=== PATIENT | female | born 1940 | race Two or more races ===

== ENCOUNTER 2016-05-25 09:46 | Emergency (ER) | payer MEDICARE, OTHER ==
[~2016-05-25] VITALS: Ht 162.6 cm; Wt 54.4 kg
[2016-05-25 10:00] VITALS: BP 61/42
[2016-05-25] MEDS ORDERED: Diltiazem 25mg/5ml IV ONE (10:15)
[2016-05-25] MEDS: Morphine Sulfate 2mg/ml Inj IVP ONE ×2 (10:20→11:28)
[2016-05-25 10:30] VITALS: BP 56/40
[2016-05-25 11:01] LABS: MEAN CORPUSCULAR HEMOGLOBIN 29.8 PG (27.0-31.0); MEAN CORPUSCULAR HGB CONC 32.3 G/DL (32.0-36.0); MEAN CORPUSCULAR VOLUME 92 FL (80-99); MEAN PLATELET VOLUME 8.3 FL (6.5-10.1); PLATELET COUNT 202 K/UL (150-450); RED BLOOD COUNT 4.44 M/UL (4.20-5.40); RED CELL DISTRIBUTION WIDTH 12.6 % (11.6-14.8); WHITE BLOOD COUNT 8.3 K/UL (4.8-10.8)
[2016-05-25 11:08] LABS: PROTHROMBIN TIME 10.5 SEC (9.30-11.50)
[2016-05-25 11:13] LABS: ALANINE AMINOTRANSFERASE 16 U/L (3-33); ALBUMIN/GLOBULIN RATIO 1.6 (1.0-2.7); ANION GAP 16 (5-15); ASPARTATE AMINO TRANSFERASE 42 U/L (5-40); CARBON DIOXIDE 22 mEQ/L (20-30); CHLORIDE 103 mEQ/L (98-107); CREATININE 0.9 mg/dL (0.5-0.9); HEMOLYSIS 26; POTASSIUM 4.6 mEQ/L (3.4-4.9); SODIUM 141 mEQ/L (135-145); TOTAL PROTEIN 5.3 g/dL (6.6-8.7)
[2016-05-25 11:14] LABS: TROPONIN I 1.64 ng/mL (<=0.30)
[2016-05-25 11:24] LABS: DIGOXIN < 0.3 ng/mL (0.5-2.0)
[2016-05-25 11:30] VITALS: BP 95/65
[2016-05-25 11:46] LABS: BAND NEUTROPHILS % (MANUAL) 0 % (0-8); BASOPHILS % (MANUAL) 0 % (0-2); EOSINOPHILS % (MANUAL) 0 % (0-3); LYMPHOCYTES % (MANUAL) 10 % (20-45); NEUTROPHILS % (MANUAL) 85 % (45-75); PLATELET ESTIMATE ADEQUATE; PLATELET MORPHOLOGY NORMAL; TOTAL CELLS COUNTED 100
--- NOTE | 2016-05-25 11:56 | Emergency Room Report ---
History of Present Illness General Chief Complaint: Chest Pain Source: Patient Present Illness HPI The patient started having acute chest pain starting at 2 am. Was worse last night she felt pressure and dizziness and shortness of breath when she tried to go to the bathroom twice - almost passed out. Describes the pain as squeezing and is 8-9/10. She also felt her heart beating fast. She never had this before. She states that she may have an irregular heartbeat in the past. Denies any fevers, chills. She has a vomiting or diarrhea but does have nausea. She does state she once felt somewhat similar when she was dehydrated. Denies pain or swelling in legs. No ALVAREZ. No dysuria. She is on plavix. Thyroid disease. Allergies: Coded Allergies: PENICILLINS (Verified Allergy, Unknown, 05/25/16) Uncoded Allergies: SULFA (Allergy, Unknown, 05/25/16) Patient History Past Medical History: see triage record Social History Narrative at home - recently moved from [place] Reviewed Nursing Documentation: PMH: Agreed, PSxH: Agreed Nursing Documentation-PMH Past Medical History: No History, Except For Review of Systems All Other Systems: negative except mentioned in HPI Physical Exam Vital Signs Date Time Temp Pulse Resp B/P Pulse Ox O2 Delivery O2 Flow Rate FiO2 05/25/16 09:48 126 20 97/56 95 Room Air Sp02 EP Interpretation: reviewed, abnormal - interpreted as slightly low by me General Appearance: no apparent distress, GCS 15, mild distress Head: normocephalic Eyes: bilateral eye PERRL, bilateral eye normal inspection ENT: dry mucus membranes Neck: supple Respiratory: lungs clear, rales Cardiovascular #1: tachycardia, irregularly irregular, edema - bilat 1+ Cardiovascular #2: 2+ radial (R) Gastrointestinal: normal inspection, normal bowel sounds, non tender, no mass, non-distended Musculoskeletal: back normal, gait/station normal, normal range of motion, no calf tenderness Neurologic: alert, oriented x3, grossly normal Psychiatric: anxious Skin: normal inspection, warm/dry Procedures Critical Care Time Critical Care Time Total Critical Care Time: 60 min bedside evaluation and treatment excludes procedures (EKG). Reason for critical care: arrhythmia - atrial fibrillation with RVR, hypotension , NSTEMI, arrange critical care transport Possible complications: hypotension, hypertension, ME, shock, arrhythmias, metabolic acidosis, end organ damage, respiratory failure. Interventions: diltiazem, fluids, analgesia, aspirin (unable to give nitrates due to hypotension) Course: Patient presents with CP and tachyarrhythmia. Immediately treated with diltiazem with consideration for cardioversion. Rate better but still with hypotension and pain. Treated with fluids. CHF on c-ray, but consider RV infarct as + troponin. Aspirin given. EKG sent and discussed with [facility] (after initial decline). Patient improved with fluids and morphine. Emergent transfer with [facility] to [facility]. Discussed with son in law (works at [employer]). Discussed heparin with [facility]. Consultations: nursing staff, EMS X 2, family, [facility] transfer Performed by: Dr. 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 This looks like as atrial fibrillation with rapid ventricular rate. Patient will be treated with diltiazem and immediate evaluation for AMI. HR may be cause of relative hypotension. Slowing rate will help ventricular filling. Need emergent treatment and lab, EKG, CXR evaluation. Consideration for emergent cardioversion as poor perfusion - however, will use meds initially. After diltiazem was given the patient was hypotensive but the rate was controlled. She received IV bolus. She still felt chest pressure at this time. Repeat EKG did not show STEMI. Morphine ordered and will be given when BP able to tolerate dose. The patient had a positive troponin. Her chest x-ray did reveal congestive heart failure. She received NS bolus and her blood pressure was better. She was treated with aspirin and also with morphine.. The fact the patient responded to fluids suggests RV infarct. [facility] initially was going to decline the patient is a nonSTEMI however after discussion with the attending the patient was accepted in transfer as she needs to have cardiac catheterization done. [facility] here and patient emergently transferred. Patient clinically improved but critical and needing higher level of care. Laboratory Tests Test 05/25/16 10:34 White Blood Count 8.3 K/UL (4.8-10.8) Red Blood Count 4.44 M/UL (4.20-5.40) Hemoglobin 13.2 G/DL (12.0-16.0) Hematocrit 41.0 % (37.0-47.0) Mean Corpuscular Volume 92 FL (80-99) Mean Corpuscular Hemoglobin 29.8 PG (27.0-31.0) Mean Corpuscular Hemoglobin Concent 32.3 G/DL (32.0-36.0) Red Cell Distribution Width 12.6 % (11.6-14.8) Platelet Count 202 K/UL (150-450) Mean Platelet Volume 8.3 FL (6.5-10.1) Neutrophils (%) (Auto) % (45.0-75.0) Lymphocytes (%) (Auto) % (20.0-45.0) Monocytes (%) (Auto) % (1.0-10.0) Eosinophils (%) (Auto) % (0.0-3.0) Basophils (%) (Auto) % (0.0-2.0) Differential Total Cells Counted 100 Neutrophils % (Manual) 85 % (45-75) H Lymphocytes % (Manual) 10 % (20-45) L Monocytes % (Manual) 5 % (1-10) Eosinophils % (Manual) 0 % (0-3) Basophils % (Manual) 0 % (0-2) Band Neutrophils 0 % (0-8) Platelet Estimate Adequate Platelet Morphology Normal Red Blood Cell Morphology Normal Prothrombin Time 10.5 SEC (9.30-11.50) Prothrombin Time INR 1.0 (0.9-1.1) PTT 20 SEC (23-33) L D-Dimer 85 ng/mL (<500) Sodium Level 141 mEQ/L (135-145) Potassium Level 4.6 mEQ/L (3.4-4.9) Chloride Level 103 mEQ/L (98-107) Carbon Dioxide Level 22 mEQ/L (20-30) Anion Gap 16 (5-15) H Blood Urea Nitrogen 16 mg/dL (7-23) Creatinine 0.9 mg/dL (0.5-0.9) Estimate Glomerular Filtration Rate mL/min (>60) Glucose Level 171 mg/dL (74-106) H Calcium Level 9.0 mg/dL (8.6-10.2) Total Bilirubin 0.5 mg/dL (0.0-1.2) Aspartate Amino Transferase (AST) 42 U/L (5-40) H Alanine Aminotransferase (ALT) 16 U/L (3-33) Alkaline Phosphatase 141 U/L (35-104) H Total Creatine Kinase 133 U/L (26-140) Troponin I 1.64 ng/mL (<=0.30) *H Pro-B-Type Natriuretic Peptide 3694 pg/mL (0-450) H Total Protein 5.3 g/dL (6.6-8.7) L Albumin 3.3 g/dL (3.5-5.2) L Globulin 2.0 g/dL Albumin/Globulin Ratio 1.6 (1.0-2.7) Digoxin Level < 0.3 ng/mL (0.5-2.0) L EKG Diagnostic Results Rate: tachycardiac Rhythm: other - a fib RVR Other Impression Second EKG with A fib, rate 90, ST depression posteriorly, no ST elevation ASA given to the pt in ED: Yes Rhythm Strip Diag. Results EP Interpretation: yes Rhythm: no PVC's, no ectopy, other - A fiv RVR Chest X-Ray Diagnostic Results Findings: no effusion, no pneumothorax, other - inc cor and CHF Last Vital Signs Date Time Temp Pulse Resp B/P Pulse Ox O2 Delivery O2 Flow Rate FiO2 05/25/16 12:26 124 22 98/41 96 Non-Rebreather 15.0 05/25/16 12:20 97.8 Status: improved Disposition: XFER [facility] HOSP Condition: Critical - but needing higher level of care and stable for transfer Referrals: NON PHYSICIAN (PCP) Dio Sal M.D. May 25, 2016 11:56
--- NOTE | 2016-05-25 12:01 | Diagnostic Imaging Report ---
Indication: Chest pain Technique: One view of the chest Comparison: None Findings: Heart is enlarged. There is mild diffuse interstitial prominence. The left costophrenic angle is obscured, small effusion not excludable. Impression: Cardio megaly Mild generalized interstitial prominence, acuity indeterminate. Mild congestion not excludable Cannot rule out small left pleural effusion
[2016-05-25 12:26] VITALS: BP 98/41
[2016-05-25] MEDS ORDERED: THYROID SUPPLEMENT ORAL (15:26)
--- NOTE | 2016-05-27 15:16 | Cardiology Report ---
APPROVED REPORT EKG Measurement Heart [id number] Atrial fibrillation with rapid ventricular response Voltage criteria for left ventricular hypertrophy Marked ST abnormality, possible inferolateral subendocardial injury Abnormal ECG
--- NOTE | 2016-05-27 15:16 | Cardiology Report ---
APPROVED REPORT EKG Measurement Heart [id number] Atrial fibrillation Voltage criteria for left ventricular hypertrophy Marked ST abnormality, possible inferior subendocardial injury Prolonged QT Abnormal ECG
== END 2016-05-25 12:39 | disposition short-term general hospital (02) ==
LOC: EDBD 09:46 → EMR 11:42
DX: I21.4 Non-ST elevation (NSTEMI) myocardial infarction (principal); I48.91 Unspecified atrial fibrillation; I50.41 Acute combined systolic (congestive) and diastolic (congestive) heart failure; Z88.0 Allergy status to penicillin; Z88.2 Allergy status to sulfonamides; Z79.02 Long term (current) use of antithrombotics/antiplatelets
CPT/HCPCS: 36415; 71010; 80053; 80162; 82550; 82962; 83880; 84484; 85007; 85025; 85379; 85610; 85730; 93005; 96360; 96361; 96374; 96375; 99291; J2270; J7040